=== PATIENT | female | born 1960 | race Caucasian/White ===

== ENCOUNTER 2021-01-04 11:54 | Emergency (ER) | payer OTHER, SELFPAY ==
[2021-01-04 12:02] VITALS: BP 145/95; RESP 20; TEMP 37.3; O2SAT 100
--- NOTE | 2021-01-04 12:58 | ED.EAR ---
HPI - Ear Problem General Chief complaint: Ear Stated complaint: ears clogged Source: patient Mode of arrival: ambulatory Limitations: no limitations History of Present Illness HPI Narrative: Patient is a 60-year-old female who presents complaining of a feeling of fullness to bilateral ears x2 days. Patient reports she feels that she has increased earwax and was going to do a home removal kit but decided to be seen in urgent care. She denies significant medical history. She denies using [id number] medications for pain or discomfort. She denies all other complaints at this time. MD Complaint: ear pain and decreased hearing Related Data Home Medications Medication Instructions Recorded Confirmed No Home Medications 01/04/21 01/04/21 Allergies Allergy/AdvReac Type Severity Reaction Status Date / Time No Known Allergies Allergy Verified 01/04/21 12:05 Review of Systems Review of Systems: Narrative: CONSTITUTIONAL: Denies fever, chills, or sweats. EYES: Denies visual changes, redness, or discharge. ENT: Bilateral otalgia CARDIOVASCULAR: Denies chest pain, palpitations, or edema. RESPIRATORY: Denies cough or dyspnea. GASTROINTESTINAL: Denies abdominal pain, nausea, vomiting, or diarrhea. GENITOURINARY: Denies dysuria or hematuria. SKIN: Denies rash or itching. MUSCULOSKELETAL: Denies back pain, joint pain, or myalgia. NEUROLOGIC: Denies headache, numbness, dizziness, or weakness. PSYCHIATRIC: Denies anxiety or depression. [facility] Social History Social History (Updated 01/04/21 @ 13:01 by ELIJAH Gibbs) Smoking status: Never smoker Alcohol intake: never Substance use: never Living arrangements: with family Comments At the time of signature, I have reviewed and agree with nursing past medical, surgical, social, and family history unless otherwise noted. Please see nursing chart for further information. There is no relevant family history pertinent to the presenting complaint. Exam Narrative: Exam Narrative: GENERAL: Well-appearing, well-nourished, and in no acute distress. HEAD: Normocephalic, atraumatic. EYES: No redness or drainage. ENT: Mucous membranes pink and moist. Nares clear. No rhinorrhea. Right TM cloudy, bulging. Left TM cloudy, bulging and injected. Throat normal. Uvula midline. NECK: AROM. Supple. No lymphadenopathy. CHEST: No respiratory distress. HEART: Regular rate and rhythm. EXTREMITIES: Normal range of motion. No edema. SKIN: Warm, dry, no rash. NEURO: No focal deficits. Alert and oriented x3. Gait steady. PSYCH: Normal affect. No signs of depression or anxiety. Course Vital Signs Vital signs: Vital Signs Temperature 37.3 C 01/04/21 12:02 Respiratory Rate 20 01/04/21 12:02 Blood Pressure 145/95 H 01/04/21 12:02 Pulse Oximetry 100 01/04/21 12:02 Temperature 37.3 C 01/04/21 12:02 Respiratory Rate 20 01/04/21 12:02 Blood Pressure 145/95 H 01/04/21 12:02 Pulse Oximetry 100 01/04/21 12:02 Reviewed-patient is informed that they may have pre-hypertension or hypertension based on a blood pressure reading. I recommend the patient call the primary care provider listed on their discharge instructions or a physician of their choice this week to arrange follow-up for further evaluation of possible pre-hypertension or hypertension. Medical Decision Making MDM Narrative Medical decision making narrative: Patient has left otitis media. Discussed with patient use of antibiotics, patient refusing antibiotics at this time, discussed with patient that infection could get worse and could cause complications. Patient continues to refuse antibiotics. Patient also reports that she does not have PCP. Discussed with patient referral for PCP. Patient declines referral as well. Discussed with patient signs and symptoms in which she would need to be seen in the emergency department. Patient is stable for discharge at this time. Differential Diagnosis
== END 2021-01-04 12:18 | disposition home or self-care (01) ==
PROVIDERS: Emergency Provider Nurse Practitioner
DX: H66.002 Acute suppurative otitis media without spontaneous rupture of ear drum, left ear (principal)
CPT/HCPCS: 99211; G0463